=== PATIENT | male | born 1975 | race Caucasian/White ===

== ENCOUNTER 2017-08-11 06:31 | Emergency (ER) | payer OTHER ==
[~2017-08-11] VITALS: Ht 172.7 cm; Wt 87.1 kg
[2017-08-11] MEDS ORDERED: LORazepam 2 MG/ML, 1ML ONE (07:17)
[2017-08-11 07:25] LABS: BASOPHILS # (AUTO) 0.02 x10^3/uL (0-0.1); BASOPHILS % (AUTO) 0 % (0-1); EOSINOPHILS # (AUTO) 0.04 x10^3/uL (0-0.4); EOSINOPHILS % (AUTO) 0 % (1-7); LYMPHOCYTES % (AUTO) 12 % (22-44); MD NO; MEAN CORPUSCULAR HEMOGLOBIN 29.7 pg (27.5-34.5); MEAN CORPUSCULAR HGB CONC 34.1 g/dL (33.2-36.2); MEAN CORPUSCULAR VOLUME 87.2 fL (81-97); MEAN PLATELET VOLUME 10.5 fL (7.4-10.4); MONOCYTES # (AUTO) 0.34 x10^3/uL (0.2-0.8); MONOCYTES % (AUTO) 3 % (2-9); NEUTROPHILS # (AUTO) 10.29 x10^3/uL (1.8-6.8); NEUTROPHILS % (AUTO) 85 % (42-75); PLATELET COUNT 217 x10^3/uL (130-400); RED BLOOD COUNT 5.27 x10^6/uL (4.38-5.82); RED CELL DISTRIBUTION WIDTH 13.9 % (9.4-14.8)
[2017-08-11] MEDS ORDERED: LORazepam 2 MG/ML, 1ML IVPush ONE (07:30)
[2017-08-11] MEDS ORDERED: SODIUM CHLORIDE FLUSH 10ML SYR IVF ONE (07:30)
[2017-08-11 07:34] LABS: ANION GAP 11 mmol/L (5-15); CHLORIDE 108 mmol/L (98-107); CREATININE 0.87 mg/dL (0.7-1.3)
[2017-08-11] MEDS ORDERED: POTASSIUM CHLORIDE 10% 40 MEQ/30 ML UDC PO ONE (08:00)
[2017-08-11 08:08] VITALS: BP 165/69
[2017-08-11] MEDS ORDERED: POTASSIUM CHLORIDE 20 MEQ TAB.ER.PRT ONE (08:13)
[2017-08-11] MEDS ORDERED: MORPHINE SULFATE 4 MG/ML, 1ML ONE (08:19)
[2017-08-11] MEDS ORDERED: MORPHINE SULFATE 4 MG/ML, 1ML IVPush ONE (08:30)
== END 2017-08-11 09:07 | disposition home or self-care (01) ==
LOC: ED 08:06
DX: F41.1 Generalized anxiety disorder (principal); R06.4 Hyperventilation; R00.1 Bradycardia, unspecified; I10 Essential (primary) hypertension
CPT/HCPCS: 36415; 71045; 80048; 82040; 85025; 93005; 96374; 96375; 99285; J2060